=== PATIENT | female | born 1990 | race Caucasian/White ===

== ENCOUNTER 2016-04-30 11:47 | Emergency (ER) | payer OTHER ==
[~2016-04-30] VITALS: Ht 167.6 cm; Wt 92.0 kg
[2016-04-30 11:49] VITALS: BP 170/88; PULSE 95; RESP 14; TEMP 98; O2SAT 98
--- NOTE | 2016-04-30 12:50 | PD ---
HPI Chief Complaint: Abdominal Pain Time Seen by Provider: 12:50 Travel History International Travel<30 days: No Contact w/Intl Traveler<30days: No Traveled to known affect area: No History of Present Illness HPI 26-year-old female presents to the emergency department for evaluation of lower abdominal pain for 3 days. The pain is intermittent. Stated the pain is aggravated when she is trying to have a bowel movement. Admits that she has hard stools, last bowel movement was this morning. Denies any alleviating factors. Denies fever, chills, nausea, vomiting, diarrhea, bloody stool, burning with urination, painful urination, vaginal discharge. Denies , she is status post tubal ligation. She does admit to recent changes in sexual partners and that she could be at risk for an STI. No other complaints. [facility], [facility] Past Medical History Medical History: Denies Significant Hx ?: Not LMP: 04/23/16 Social History Alcohol Use: No Tobacco Use: Yes Substance Use: No Allergies-Medications (Allergen,Severity, Reaction): Coded Allergies: Levaquin (Verified Allergy, Unknown, 04/30/16) Uncoded Allergies: all cillins (Allergy, Unknown, 04/30/16) Reported Meds & Prescriptions Reported Meds & Active Scripts Active No Active Prescriptions or Reported Medications Review of Systems Except as stated in HPI: all other systems reviewed are Neg Physical Exam Narrative GENERAL: Well-nourished and well-developed pleasant female patient in no acute distress who is nontoxic appearing. SKIN: Warm and dry. HEAD: Normocephalic and atraumatic. EYES: No injection, drainage, or hyphema noted. PERRLA. EOMI. ENT: No nasal drainage noted. Oropharynx is clear. NECK: Supple and the trachea is midline. CARDIOVASCULAR: Regular rate and rhythm. RESPIRATORY: Breath sounds are equal bilaterally with no accessory muscle use, wheezing, rhonchi, or crackles. GASTROINTESTINAL: Mild lower abdominal tenderness to palpation. Negative McBurney's point. Negative Multani sign. Abdomen is soft and nondistended. No rebound tenderness or guarding. GENITOURINARY: Normal external genitalia without lesions or erythema. Vaginal vault with scant yellow discharge. Cervical os was closed without drainage. Mild cervical motion tenderness. Uterus nontender and nonenlarged. Bilateral adnexa nontender without masses. Performed in the presence of Sandra an RN. MUSCULOSKELETAL: No obvious deformities, swelling, cyanosis, or ecchymosis is present throughout the upper and lower extremities. Patient has full range of motion without any signs of neurovascular compromise. BACK: Negative CVA tenderness. NEUROLOGICAL: Awake, alert, and oriented. Normal speech and gait. Cranial nerves are grossly intact. Data Data Last Documented VS Vital Signs Date Time Temp Pulse Resp B/P Pulse Ox O2 Delivery O2 Flow Rate FiO2 04/30/16 11:49 98.0 95 14 170/88 98 Room Air Orders Complete Blood Count With Diff (04/30/16 12:48) Comprehensive Metabolic Panel (04/30/16 12:48) Lipase (04/30/16 12:48) Urinalysis - C+S If Indicated (04/30/16 12:48) Iv Access Insert/Monitor (04/30/16 12:48) Sodium Chloride 0.9% Flush (Ns Flush) (04/30/16 13:00) Ed Urine Pregnancytest Poc (04/30/16 12:48) Gc And Chlamydia Pcr (04/30/16 12:48) Wet Prep Profile (04/30/16 12:48) Azithromycin (Zithromax) (05/01/16 09:00) Ceftriaxone Inj (Rocephin Inj) (04/30/16 14:15) Lidocaine 1% Inj (50 Ml) (Xylocaine 1% I (04/30/16 14:15) Ceftriaxone Inj (Rocephin Inj) (04/30/16 14:30) Azithromycin (Zithromax) (04/30/16 14:30) Labs Laboratory Tests Test 04/30/16 04/30/16 04/30/16 13:04 13:05 14:09 White Blood Count 8.9 TH/MM3 Red Blood Count 4.61 MIL/MM3 Hemoglobin 12.6 GM/DL Hematocrit 37.9 % Mean Corpuscular Volume 82.1 FL Mean Corpuscular Hemoglobin 27.3 PG Mean Corpuscular Hemoglobin 33.2 % Concent Red Cell Distribution Width 16.2 % Platelet Count 233 TH/MM3 Mean Platelet Volume 8.7 FL Neutrophils (%) (Auto) 61.5 % Lymphocytes (%) (Auto) 30.1 % Monocytes (%) (Auto) 4.9 % Eosinophils (%) (Auto) 2.6 % Basophils (%) (Auto) 0.9 % Neutrophils # (Auto) 5.5 TH/MM3 Lymphocytes # (Auto) 2.7 TH/MM3 Monocytes # (Auto) 0.4 TH/MM3 Eosinophils # (Auto) 0.2 TH/MM3 Basophils # (Auto) 0.1 TH/MM3 CBC Comment DIFF FINAL Differential Comment Sodium Level 141 MEQ/L Potassium Level 4.3 MEQ/L Chloride Level 110 MEQ/L Carbon Dioxide Level 26.3 MEQ/L Anion Gap 5 MEQ/L Blood Urea Nitrogen 9 MG/DL Creatinine 0.82 MG/DL Estimat Glomerular Filtration 84 ML/MIN Rate Random Glucose 80 MG/DL Calcium Level 9.0 MG/DL Total Bilirubin 0.2 MG/DL Aspartate Amino Transf 18 U/L (AST/SGOT) Alanine Aminotransferase 17 U/L (ALT/SGPT) Alkaline Phosphatase 72 U/L Total Protein 7.5 GM/DL Albumin 4.3 GM/DL Lipase 118 U/L Urine Color YELLOW Urine Turbidity CLEAR Urine pH 6.0 Urine Specific [place] 1.015 Urine Protein NEG mg/dL Urine Glucose (UA) NEG mg/dL Urine Ketones NEG mg/dL Urine Occult Blood NEG Urine Nitrite NEG Urine Bilirubin NEG Urine Urobilinogen LESS THAN 2.0 MG/DL Urine Leukocyte Esterase NEG Urine RBC 1 /hpf Urine WBC 1 /hpf Urine Squamous Epithelial 6 /hpf Cells Urine Bacteria RARE /hpf Microscopic Urinalysis Comment CULT NOT INDICATED Clue Cells (Wet Prep) NONE SEEN Vaginal Trichomonas (Wet Prep) NONE SEEN Vaginal Yeast (Wet Prep) NONE SEEN MDM Medical Decision Making Medical Screen Exam Complete: Yes Emergency Medical Condition: Yes Differential Diagnosis Cystitis versus urethritis versus PID versus STI versus colitis Narrative Course 26-year-old female presents to the emergency department for evaluation of lower abdominal pain for 3 days. Patient is afebrile, vital signs are stable. She does have some mild lower abdominal tenderness to palpation, no rebound tenderness or guarding. Abdominal examination is essentially benign. Pelvic Examination does show small amount of vaginal discharge with mild cervical motion tenderness. IV access is obtained, labs have been drawn and sent. Patient will be treated prophylactically for gonorrhea and chlamydia with Zithromax 1 g and Rocephin 1 g. CBC is unremarkable. CMP is unremarkable. Lipase is normal. Urinalysis shows rare bacteria, otherwise unremarkable. Wet prep is negative. GC chlamydia is pending. Discussed results with the patient. Suspicious for PID. 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 Stable for discharge. I discussed the case with my attending physician Dr. Curtis who is aware of the patients history, physical examination findings, and treatment plan. 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 Return to the ED for any acute worsening of symptoms. Med/Other Pt SpecificInfo: No Change to Meds Scripts No Active Prescriptions or Reported Meds Disposition: 01 DISCHARGE HOME Condition: Stable Sana Klein Apr 30, 2016 12:50
[2016-04-30] MEDS ORDERED: SODIUM CHLORIDE 0.9% FLUSH 5 ML FLUSH IVF PRN (13:00)
[2016-04-30 13:21] LABS: AUTOMATED NEUTROPHIL # 5.5 TH/MM3 (1.8-7.7); BASOPHIL # 0.1 TH/MM3 (0-0.2); BASOPHIL % 0.9 % (0.0-2.0); EOSINOPHIL # 0.2 TH/MM3 (0-0.4); EOSINOPHIL % 2.6 % (0.0-4.0); HEMATOCRIT 37.9 % (35.0-46.0); HEMO FLAGS DIFF FINAL; LYMPH % 30.1 % (9.0-44.0); LYMPHOCYTE # 2.7 TH/MM3 (1.0-4.8); MEAN CELL VOLUME 82.1 FL (80.0-100.0); MEAN CORPUSCULAR HEMOGLOBIN 27.3 PG (27.0-34.0); MEAN CORPUSCULAR HGB CONC 33.2 % (32.0-36.0); MONO % 4.9 % (0.0-8.0); NEUT % 61.5 % (16.0-70.0); PLATELET COUNT 233 TH/MM3 (150-450); RED BLOOD COUNT 4.61 MIL/MM3 (4.00-5.30); RED CELL DISTRIBUTION WIDTH 16.2 % (11.6-17.2); WHITE BLOOD COUNT 8.9 TH/MM3 (4.0-11.0)
[2016-04-30 13:49] LABS: BACTERIA, URINE RARE /hpf; BLOOD, URINE NEG (NEG); GLUCOSE,URINE NEG (NEG); KETONE, URINE NEG (NEG); NITRITE,URINE NEG (NEG); SQUAMOUS EPITHELIAL CELL URINE 6 /hpf (0-5); URINE COLOR YELLOW (YELLW/STRAW)
[2016-04-30 13:50] LABS: COMMENT (UR) CULT NOT INDICATED; CULTURE IF INDICATED CULT NOT INDICATED
[2016-04-30 14:00] LABS: ALKALINE PHOSPHATASE 72 U/L (45-117); TOTAL BILIRUBIN ADULT 0.2 MG/DL (0.2-1.0)
[2016-04-30 14:05] LABS: ALT (GPT) 17 U/L (10-53); ANION GAP 5 MEQ/L (5-15); AST (GOT) 18 U/L (15-37); BICARBONATE 26.3 MEQ/L (21.0-32.0); BLOOD UREA NITROGEN 9 MG/DL (7-18); CHLORIDE 110 MEQ/L (98-107); GLOMERULAR FILTRATION RATE 84 ML/MIN (>89); POTASSIUM 4.3 MEQ/L (3.5-5.1); SODIUM (NA) 141 MEQ/L (136-145)
[2016-04-30] MEDS ORDERED: cefTRIAXone 250 MG VIAL IM ONE (14:15)
[2016-04-30] MEDS ORDERED: LIDOCAINE HCL 1% 50 ML VIAL IM ONE (14:15)
[2016-04-30] MEDS ORDERED: AZITHROMYCIN 250 MG TAB PO ONE (14:30)
[2016-04-30] MEDS ORDERED: cefTRIAXone INJ 1,000 MG in SODIUM CHLORIDE 0.9% INJ 100 ML IV ONE (14:30)
--- NOTE | 2016-04-30 14:30 | PD ---
Data Data Last Documented VS Vital Signs Date Time Temp Pulse Resp B/P Pulse Ox O2 Delivery O2 Flow Rate FiO2 04/30/16 11:49 98.0 95 14 170/88 98 Room Air Orders Complete Blood Count With Diff (04/30/16 12:48) Comprehensive Metabolic Panel (04/30/16 12:48) Lipase (04/30/16 12:48) Urinalysis - C+S If Indicated (04/30/16 12:48) Iv Access Insert/Monitor (04/30/16 12:48) Sodium Chloride 0.9% Flush (Ns Flush) (04/30/16 13:00) Ed Urine Pregnancytest Poc (04/30/16 12:48) Gc And Chlamydia Pcr (04/30/16 12:48) Wet Prep Profile (04/30/16 12:48) Azithromycin (Zithromax) (05/01/16 09:00) Ceftriaxone Inj (Rocephin Inj) (04/30/16 14:15) Lidocaine 1% Inj (50 Ml) (Xylocaine 1% I (04/30/16 14:15) Ceftriaxone Inj (Rocephin Inj) (04/30/16 14:30) Labs Laboratory Tests Test 04/30/16 04/30/16 04/30/16 13:04 13:05 14:09 White Blood Count 8.9 TH/MM3 Red Blood Count 4.61 MIL/MM3 Hemoglobin 12.6 GM/DL Hematocrit 37.9 % Mean Corpuscular Volume 82.1 FL Mean Corpuscular Hemoglobin 27.3 PG Mean Corpuscular Hemoglobin 33.2 % Concent Red Cell Distribution Width 16.2 % Platelet Count 233 TH/MM3 Mean Platelet Volume 8.7 FL Neutrophils (%) (Auto) 61.5 % Lymphocytes (%) (Auto) 30.1 % Monocytes (%) (Auto) 4.9 % Eosinophils (%) (Auto) 2.6 % Basophils (%) (Auto) 0.9 % Neutrophils # (Auto) 5.5 TH/MM3 Lymphocytes # (Auto) 2.7 TH/MM3 Monocytes # (Auto) 0.4 TH/MM3 Eosinophils # (Auto) 0.2 TH/MM3 Basophils # (Auto) 0.1 TH/MM3 CBC Comment DIFF FINAL Differential Comment Sodium Level 141 MEQ/L Potassium Level 4.3 MEQ/L Chloride Level 110 MEQ/L Carbon Dioxide Level 26.3 MEQ/L Anion Gap 5 MEQ/L Blood Urea Nitrogen 9 MG/DL Creatinine 0.82 MG/DL Estimat Glomerular Filtration 84 ML/MIN Rate Random Glucose 80 MG/DL Calcium Level 9.0 MG/DL Total Bilirubin 0.2 MG/DL Aspartate Amino Transf 18 U/L (AST/SGOT) Alanine Aminotransferase 17 U/L (ALT/SGPT) Alkaline Phosphatase 72 U/L Total Protein 7.5 GM/DL Albumin 4.3 GM/DL Lipase 118 U/L Urine Color YELLOW Urine Turbidity CLEAR Urine pH 6.0 Urine Specific [place] 1.015 Urine Protein NEG mg/dL Urine Glucose (UA) NEG mg/dL Urine Ketones NEG mg/dL Urine Occult Blood NEG Urine Nitrite NEG Urine Bilirubin NEG Urine Urobilinogen LESS THAN 2.0 MG/DL Urine Leukocyte Esterase NEG Urine RBC 1 /hpf Urine WBC 1 /hpf Urine Squamous Epithelial 6 /hpf Cells Urine Bacteria RARE /hpf Microscopic Urinalysis Comment CULT NOT INDICATED Clue Cells (Wet Prep) NONE SEEN Vaginal Trichomonas (Wet Prep) NONE SEEN Vaginal Yeast (Wet Prep) NONE SEEN MDM Supervised Visit with [facility]ARREN: Yes Narrative Course I, Dr. Curtis, have reviewed the advance practice practioner's documentation and am in agreement, met with the patient face to face, made the diagnosis, and the medical decision making was done by me. *My assessment and Findings: 26-year-old female here with 3 days of lower abdominal pain and a new sexual partner. Pain is mild, primarily cramping. Benign abdominal examination. Pelvic exam performed by PA notable for cervical motion tenderness. Symptoms consistent with pelvic inflammatory disease versus STI. Less likely , ectopic , UTI or peritoneal pathology. Patient's laboratory workup was unremarkable. While awaiting GC, Chlamydia, wet prep she will be treated empirically for PID and discharged home. Diagnosis Primary Impression: Pelvic inflammatory disease (PID) Referrals: Photographer [employer] as needed [facility] Dept. as needed Patient Instructions: General Instructions, Pelvic Inflammatory Disease (ED) Scripts No Active Prescriptions or Reported Meds Disposition: 01 DISCHARGE HOME Condition: Stable Rosy Curtis MD Apr 30, 2016 14:30
[2016-04-30 16:50] LABS: CHLAMYDIA PCR NOT DETECTED (NOT DETECT); NEISSERIA PCR NOT DETECTED (NOT DETECT)
[2016-05-01] MEDS ORDERED: AZITHROMYCIN 250 MG TAB PO SCH (09:00)
== END 2016-04-30 15:12 | disposition home or self-care (01) ==
LOC: NEPB 11:47
DX: N73.9 Female pelvic inflammatory disease, unspecified (principal); Z72.0 Tobacco use
CPT/HCPCS: 80053; 81001; 83690; 84703; 85025; 87210; 87491; 87591; 96365; 99284; J0696